=== PATIENT | female | born 2000 | race Caucasian/White ===

== ENCOUNTER 2023-09-13 20:55 | Observation (INO) | payer BC, MEDICAID, SELFPAY ==
[2023-09-13 21:02] VITALS: BP 130/83; PULSE 90; RESP 21; TEMP 36.9; O2SAT 97
[2023-09-13 21:16] VITALS: BP 118/73; PULSE 90; RESP 19; O2SAT 100
[2023-09-13] MEDS: EPINEPHrine HCL INJ 1 MG/ML AMPUL 0.3 MG IM (21:19)
--- NOTE | 2023-09-13 21:19 | PC.NURSE ---
JOSE Bennett VORB 0.3mg IM epinephrine an d125mg IVP solu medrol.
[2023-09-13] MEDS: methylPREDNISolone SOD SUCC 125 MG VIAL IV PUSH (21:20)
--- NOTE | 2023-09-13 21:26 | ED.ALLEREA ---
HPI - Allergic Reaction General Chief complaint: Allergic Reaction <ALVARADO Cintron Last Filed: 09/14/23 02:02> Stated complaint: aalergic reaction <ALVARADO Cintron Last Filed: 09/14/23 02:02> Time Seen by Provider: 09/13/23 21:07 <ALVARADO Cintron Last Filed: 09/14/23 02:02> Source: patient <ALVARADO Cintron Last Filed: 09/14/23 02:02> Mode of arrival: ambulatory <ALVARADO Cintron Last Filed: 09/14/23 02:02> Limitations: no limitations <ALVARADO Cintron Last Filed: 09/14/23 02:02> History of Present Illness HPI narrative: This is a 23-year-old female who presents to the ED with chief complaint of allergic reaction that started about 1-2 hours prior to arrival. Patient reports swelling to lips and eyes, started around the mouth. Patient has no known allergies but does note that she took Motrin prior to arrival. Patient resides at a long-term and is originally from [facility]. She is accompanied by the . They report that patient has had reactions similar to this but nothing as severe as once per month for the past few months. The feel this is occurring after she is taking Motrin for headaches. Patient denies shortness of breath or any other symptoms besides the facial swelling. Denies abdominal pain, nausea, vomiting. <ALVARADO Cintron Last Filed: 09/14/23 02:02> Related Data Home medications: Home Medications Medication Instructions Recorded Confirmed albuterol sulfate 90 mcg/actuation 2 puff inhalation Q4H PRN 09/14/23 09/14/23 aerosol inhaler (Ventolin HFA) Shortness Of Breath bupropion HCl 300 mg 24 hr tablet, 300 mg PO DAILY 09/14/23 09/14/23 extended release melatonin 5 mg tablet 5 mg PO HS 09/14/23 09/14/23 sertraline 100 mg tablet 100 mg PO DAILY 09/14/23 09/14/23 sertraline 50 mg tablet 50 mg PO DAILY 09/14/23 09/14/23 trazodone 50 mg tablet 50 mg PO HS 09/14/23 09/14/23 <Donald Colin PA-C - Last Filed: 09/14/23 02:02> Allergies/adverse reactions: Allergies Allergy/AdvReac Type Severity Reaction Status Date / Time ibuprofen Allergy Severe angioedema Verified 09/14/23 09:13 <ALVARADO Cintron Last Filed: 09/14/23 02:02> Review of Systems Review of Systems: All systems as dictated in HPI <ALVARADO Cintron Last Filed: 09/14/23 02:02> [facility] Family History Family History: Family History (Updated 09/14/23 @ 01:29 by Carlee Lu RN) Other Unknown family medical history <ALVARADO Cintron Last Filed: 09/14/23 02:02> Social History Social History: Social History Smoking status: Never smoker Alcohol intake: never Substance use: never Do You Feel Safe in your Home?: Yes Lack of Transportation: No Lack of Food: Never True Current Housing: I Have Housing Concerned About Future Housing: No Difficulty Paying Gas/Electric Bills: No Difficulty Paying for Meds: No Currently Unemployed: No Education: Decline to Answer Difficulty w/ Childcare or Family Care: No Spiritual care concerns: No <ALVARADO Cintron Last Filed: 09/14/23 02:02> Exam Narrative: GENERAL: Well-appearing, well-nourished, and in no acute distress. HEAD: Normocephalic, atraumatic. EYES: PERRLA and EOMI. ENT: Significant periorbital edema as well as edema to the lips. No tongue enlargement. No uvular enlargement. Airway is intact. Speaking in full sentences. 97% room air. Nares clear, no rhinorrhea or epistaxis. Mucous membranes moist. Oropharynx without tonsillar hypertrophy exudate or other lesions. NECK: Supple. No adenopathy or masses. CHEST: No respiratory distress. Clear to auscultation. No wheezes rales or rhonchi HEART: Regular rate and rhythm. No murmur heard. Normal peripheral pulses. ABDOMEN: Soft, nontender, nondistended, normal active bowel sounds. MSK: Normal range of motion. No edema. SKIN: Warm, dry, no rash. NEURO: Alert and oriented x3. No f
[2023-09-13] MEDS: FAMOTIDINE 20 MG/2 ML VIAL IV PUSH (21:43)
[2023-09-13] MEDS: diphenhydrAMINE HCl INJ 50 MG/ML VIAL 25 MG IV PUSH (21:43)
[2023-09-13 22:16] VITALS: BP 119/68; PULSE 83; RESP 25; O2SAT 99
[2023-09-13 22:23] LABS: Basophils Absolute Auto 0.1 K/mm3 (0.0-0.1); Basophils Percent Auto 0.4 % (0.2-1.2); Eosinophils Absolute Auto 0.2 K/mm3 (0-0.3); Eosinophils Percent Auto 1.6 % (0-4.4); Hematocrit 42.7 % (37.0-47.0); Hemoglobin 13.9 g/dL (12.0-15.0); Immature Granulocyte Absolute 0.12 K/mm3 (0.00-0.031); Immature Granulocyte Percent A 0.8 % (0-0.5); Lymphocytes Absolute Auto 3.07 K/mm3 (0.9-3.2); Lymphocytes Percent Auto 21.3 % (18.3-44.2); Mean Corpuscular HGB Conc 32.6 g/dl (32-36); Mean Corpuscular Hemoglobin 25.6 pg (26-34); Mean Corpuscular Volume 78.8 fl (80-100); Mean Platelet Volume 9.7 fl (7.4-10.4); Monocytes Absolute Auto 1.2 K/mm3 (0.1-0.6); Monocytes Percent Auto 8.3 % (2.6-8.5); Neutrophils Absolute Auto 9.7 K/mm3 (1.3-6.7); Neutrophils Percent Auto 67.6 % (45.5-73.1); Platelet Count Result 386 k/mm3 (150-375); Red Blood Count 5.42 M/mm3 (4.2-5.4); Red Cell Distribution Width 14.8 % (11.5-14.5); White Blood Count 14.4 K/mm3 (4.5-10.0)
[2023-09-13] MEDS: SODIUM CHLORIDE 0.9% IV 1,000 ML 999 ML IV CONT (22:24)
[2023-09-13 22:27] VITALS: BP 119/68; PULSE 85; RESP 22; O2SAT 99
[2023-09-13 22:32] LABS: Alanine Aminotransferase 12 U/L (6-35); Albumin Level 4.6 g/dL (3.5-5.1); Alkaline Phosphatase 69 U/L (38-126); Anion Gap 10 mmol/L (4-12); Aspartate Amino Transferase 21 U/L (14-36); Bilirubin,Total 0.5 mg/dL (0.2-1.3); Blood Urea Nitrogen 15 mg/dL (7-17); Calcium 9.2 mg/dL (8.4-10.2); Carbon Dioxide 21 mmol/L (22-30); Chloride 106 mmol/L (98-107); Estimated CRCL calculation 119 ml/min; Estimated Glomerular Filt Rate > 60; Glucose 89 mg/dL (65-110); Potassium 4.3 mmol/L (3.4-5.0); Sodium 137 mmol/L (137-145)
[2023-09-13 22:36] LABS: Partial Thromboplastin Time 28.1 Seconds (22.3-36.8); Prothrombin Time 13.8 Seconds (11.1-14.7)
--- NOTE | 2023-09-13 23:54 | PM.IMHP ---
H&P: HPI History of Present Illness Date/Time: 09/13/23 23:54 Chief Complaint: lip swelling Narrative: This is a 23-year-old female with no significant past medical history presents to the emergency room due to face swelling lip swelling apparently patient had taking Motrin at this happens every time she takes Motrin has had several episodes. patient denies any shortness of breath, difficulty swallowing, denies fevers chills rigors, sore throat. Has been her usual state of health. In emergency room patient received epinephrine, Solu-Medrol has had improvement. Patient has been placed in observation for further evaluation management and treatment. Review of Systems Review of Systems: Face swelling lip swelling Constitutional: Constitutional: Denies chills and Denies fever(s) Eyes: Eyes: Denies change in vision ENT: Denies dysphagia Cardiovascular: Cardiovascular: Denies chest pain and Denies dyspnea Respiratory: Respiratory: Denies chest congestion, Denies cough and Denies wheezing Gastrointestinal: Gastrointestinal: Denies abdominal pain, Denies nausea and Denies vomiting Genitourinary: Genitourinary: Denies dysuria Musculoskeletal: Musculoskeletal: Denies myalgias Integumentary/Breasts: Skin/Breast: Denies rash Neurologic: Denies focal weakness and Denies Sensory deficit (Neuro) Psychiatric: Psychiatric: Reports no additional psychiatric complaints and Reports as per HPI Endocrine: Endocrine: Denies cold intolerance, Denies heat intolerance, Denies polyphagia, Denies polydipsia, Denies polyuria and Denies palpitations Hematologic/Lymphatic: Hematologic/Lymphatic: Reports no additional hematologic/lymphatic complaints and Reports as per HPI Allergic/Immunologic: Allergic/Immunologic: Reports no additional allergic/immunologic complaints and Reports as per HPI Meds Home Medications and Allergies Allergies Allergy/AdvReac Type Severity Reaction Status Date / Time No Known Allergies Allergy Verified 09/13/23 21:07 Vital Signs Vital Signs - 24 hr 09/13/23 21:02 09/13/23 21:06 09/13/23 22:27 Temperature 98.4 F Pulse Rate 90 85 Respiratory Rate 21 H 22 H Blood Pressure 130/83 119/68 Pulse Oximetry 97 99 Oxygen Delivery Room Air Room Air Exam Narrative: patient is laying in a stretcher Const: General: comfortable, no acute distress, well developed, alert, awake and average body habitus Nutritional Appearance: average body habitus Orientation/consciousness: patient oriented x3 HENMT: Head: normal to inspection, normocephalic and atraumatic Ears: hearing grossly normal bilaterally Face/Nose/Sinus: edema ( around the lips right face) Face and sinus: normal facial exam Eyes: General: appearance normal, both eyes and all related structures Periorbital: periorbital findings abnormal right periorbital swelling Pupils: Equal, round and reactive pupils present EOM: EOMs intact bilaterally Neck: Neck: full ROM, no lymphadenopathy and no JVD Thyroid: thyroid normal Lymphatic: no lymphadenopathy noted Resp: Effort & Inspection: normal respiratory effort and able to speak in complete sentences Auscultation: clear to auscultation bilaterally Cardio: Jugular venous distension: no JVD Rate: regular rate Rhythm: regular rhythm Heart sounds: S1 normal heart sound present and S2 normal heart sound present GI: GI Palp: Yes Soft to palpation and Yes No hepatosplenomegaly present : General: Yes deferred Skin: Rashes: no rashes Wounds: no wounds Neuro: General: patient oriented x3 and CN's II-XI intact bilaterally Cranial nerves: Yes CN's II-XII intact bilaterally and Yes Equal, round and reactive pupils present Cognition (Neuro): normal cognition Speech: normal speech Gait exam (Neuro): Normal gait present Motor exam (neuro): 5/5 motor strength present throughout Extrem: General: normal to inspection, full ROM, no joint enlargement and no pedal edema H&P: Results Labs
[2023-09-14] VITALS (12 sets, daily range): BP systolic 104–132; BP diastolic 57–78; PULSE 71–96; RESP 14–18; TEMP 36.4–36.6; O2SAT 98–100; BMI 36.6
--- NOTE | 2023-09-14 00:30 | PC.NURSE ---
Lanette Sibley [phone]
--- NOTE | 2023-09-14 01:00 | PC.NURSE ---
This patient, Ngoc Cornejo, was admitted to IMU Room 202-01. Patient/family oriented to hospital policies and general routines including ID bracelet, bed and alarms, visiting hours, pain management, procedures, bathroom and other care routines, personal items, smoking policy, room service/diet, and visiting hours. Information on how to activate the Rapid Response Team has been discussed. Patient/Family are encouraged to report perceived risks to care and to ask questions if they do not understand what they are told or what they should do.
[2023-09-14] MEDS: DEXTROSE 5%/0.45% SOD CHL 1,000 ML 75 ML IV CONT (01:17)
[2023-09-14] MEDS: racEPINEPHrine 2.25% NEBU SOLN 0.5 ML VIAL.NEB INHALATION (01:47)
[2023-09-14] MEDS: FAMOTIDINE 20 MG TABLET PO (09:06)
--- NOTE | 2023-09-14 09:09 | PM.IMPN ---
Subjective Date/time seen: 09/14/23 09:09 Interval history: ?This is a 23-year-old female with no significant past medical history presents to the emergency room due to face swelling lip swelling apparently patient had taking Motrin at this happens every time she takes Motrin has had several episodes. patient denies any shortness of breath, difficulty swallowing, denies fevers chills rigors, sore throat.? Has been her usual state of health.? In emergency room patient received epinephrine, Solu-Medrol has had improvement.? Patient has been placed in observation for further evaluation management and treatment. 09/13: Objective Data Vital Signs Vital Signs: Vital Signs - 24 hr 09/13/23 21:02 09/13/23 21:06 09/13/23 22:27 Temperature 98.4 F Pulse Rate 90 85 Respiratory Rate 21 H 22 H Blood Pressure 130/83 119/68 Pulse Oximetry 97 99 Oxygen Delivery Room Air Room Air 09/13/23 21:16 09/13/23 22:16 09/14/23 00:00 Temperature Pulse Rate 90 83 88 Respiratory Rate 19 25 H 18 Blood Pressure 118/73 119/68 119/73 Pulse Oximetry 100 99 98 Oxygen Delivery 09/14/23 00:36 09/14/23 00:50 09/14/23 01:48 Temperature 97.9 F Pulse Rate 77 80 76 Respiratory Rate 14 16 18 Blood Pressure 132/78 104/68 Pulse Oximetry 98 98 Oxygen Delivery 09/14/23 01:55 09/14/23 01:30 09/14/23 02:00 Temperature Pulse Rate 77 88 Respiratory Rate 18 Blood Pressure Pulse Oximetry Oxygen Delivery Room Air 09/14/23 01:07 09/14/23 04:50 09/14/23 04:00 Temperature 97.8 F Pulse Rate 78 77 Respiratory Rate 16 Blood Pressure 113/61 Pulse Oximetry 100 Oxygen Delivery Room Air 09/14/23 04:00 09/14/23 06:00 09/14/23 07:56 Temperature 97.5 F L Pulse Rate 96 71 81 Respiratory Rate 16 Blood Pressure 113/57 L Pulse Oximetry 99 Oxygen Delivery Intake/Output Intake/Output: Intake & Output 09/11/23 09/12/23 09/13/23 09/14/23 23:59 23:59 23:59 23:59 Intake Total 1000 360 Output Total 200 Balance 1000 160 Meds/Results Medications: Active Medications Generic Name Dose Route Start Last Admin Trade Name Freq PRN Reason Stop Dose Admin Al Hydrox/Mg Hydrox/Simethicone 30 ml 09/14/23 01:01 Mag Hydrox/Al Hydrox/Simeth 30 Ml Udc PO Q6H PRN Indigestion Diphenhydramine HCl 50 mg 09/14/23 00:59 Diphenhydramine Hcl Inj 50 Mg/Ml Vial IV PUSH Q4H PRN Itching Famotidine 20 mg 09/14/23 09:00 09/14/23 09:06 Famotidine 20 Mg Tablet PO 20 mg Q12HR KIM Administration Dextrose/Sodium Chloride 1,000 mls @ 75 mls/hr 09/14/23 01:05 09/14/23 01:17 Dextrose 5% Sodium Chloride 0.45% IV CONT 75 mls/hr .[id number] KIM Administration Polyethylene Glycol 17 gm 09/14/23 01:01 Polyethylene Glycol 3350 17 Gm Powd.Pack PO QAM PRN Constipation Labs Labs: Laboratory Results - last 24 hr 09/13/23 22:18 WBC 14.4 H RBC 5.42 H Hgb 13.9 Hct 42.7 MCV 78.8 L MCH 25.6 L MCHC 32.6 RDW 14.8 H Plt Count 386 H MPV 9.7 Immature Gran % (Auto) 0.8 H Neut % (Auto) 67.6 Lymph % (Auto) 21.3 [place] % (Auto) 8.3 Eos % (Auto) 1.6 Baso % (Auto) 0.4 Lymph # (Auto) 3.07 [place] # (Auto) 1.2 H Eos # (Auto) 0.2 Baso # (Auto) 0.1 Abs Immat Gran (auto) 0.12 H Absolute Neuts (auto) 9.7 H Absolute Nucleated RBC 0.000 Nucleated RBC % 0.0 PT 13.8 INR 1.0 APTT 28.1 Sodium 137 Potassium 4.3 Chloride 106 Carbon Dioxide 21 L Anion Gap 10 BUN 15 Creatinine 0.70 Estim Creat Clear Calc 119 Estimated GFR > 60 Glucose 89 Calcium 9.2 Total Bilirubin 0.5 AST 21 ALT 12 Alkaline Phosphatase 69 Total Protein 8.0 Albumin 4.6
--- NOTE | 2023-09-14 10:20 | PM.DS ---
DS: Admitting Diagnosis Discharge Date 09-13 Admitting Diagnosis Facial swelling DS: Discharge Diagnosis Discharge Diagnosis (1) Angioedema: Code(s): T78.3XXA - Angioneurotic edema, initial encounter Status: Acute Assessment and Plan: placed in observation supportive care continue to monitor avoid NSAID DS: Summary Hospital Course Reason for hospitalization: angioedema Hospital Course: This is a 23-year-old female with a past medical history significant for anxiety, depression, and asthma who presents with complaints of right sided facial swelling after ingestion of ibuprofen for headache. The patient states that this has happened before after taking ibuprofen but the swelling was not as severe. The initial swelling was significant to the right side of her face, right eye, nose and lips. The patient showed me a picture on her phone 0 when she 1st presented. Today the swelling has decreased significantly. She can be discharged home today. Status at Discharge Cognitive/behavioral status at discharge: A&O x4 Time Spent with Patient Time attestation: Total time spent providing and/or coordinating discharge services:54 Exam Narrative: General: well appearing, appears stated age. HEENT: normocephalic, atraumatic. Mucous membranes moist. EOMI, PERRLA, bilateral sclera anicteric, no conjunctival injection. Neck supple without JVD, lymphadenopathy, or bruit. Right orbital edema, trace lip edema Respiratory: clear to auscultation bilaterally. No rales/rhonic/wheezes. Cardiovascular: Regular rate and rhythm, normal S1-S2 upon auscultation. No murmurs, rubs, or clicks. PMI is nondisplaced, capillary refill less than 3 second. Abdomen: Soft, round, no pulsatile masses, nondistended and nontender. No rebound, no guarding. No CVA tenderness, no hepatosplenomegaly. Bowel sounds present to all four quadrants. No high pitch or tinkling sounds, resonant to percussion. Extremities: No cyanosis, clubbing, or edema present. Pulses are palpable 2/2. Active ROM to all four extremities. Neuro: Alert and orientated x 4. PERRLA. Cranial nerves 2-12 intact without focal deficit. Skin: Warm, dry, and intact, without rash, erythema, or lesion. Lines: Incisions: Psych: pleasant, cooperative, normal speech, normal affect, no hallucinations, no dysarthria DS: Data Data Completed and Pending Labs on day of discharge: Labs from last 24 hours 09/13/23 22:18 WBC 14.4 H RBC 5.42 H Hgb 13.9 Hct 42.7 MCV 78.8 L MCH 25.6 L MCHC 32.6 RDW 14.8 H Plt Count 386 H MPV 9.7 Immature Gran % (Auto) 0.8 H Neut % (Auto) 67.6 Lymph % (Auto) 21.3 [place] % (Auto) 8.3 Eos % (Auto) 1.6 Baso % (Auto) 0.4 Lymph # (Auto) 3.07 [place] # (Auto) 1.2 H Eos # (Auto) 0.2 Baso # (Auto) 0.1 Abs Immat Gran (auto) 0.12 H Absolute Neuts (auto) 9.7 H Absolute Nucleated RBC 0.000 Nucleated RBC % 0.0 PT 13.8 INR 1.0 APTT 28.1 Sodium 137 Potassium 4.3 Chloride 106 Carbon Dioxide 21 L Anion Gap 10 BUN 15 Creatinine 0.70 Estim Creat Clear Calc 119 Estimated GFR > 60 Glucose 89 Calcium 9.2 Total Bilirubin 0.5 AST 21 ALT 12 Alkaline Phosphatase 69 Total Protein 8.0 Albumin 4.6 Discharge Plan Discharge Attending physician on discharge: Camilo Silva Discharging Clinician: Nieves Zelaya Anticipated Discharge Date/Time: 09/14/23 10:25 Patient Disposition: Other Activity: may shower Diet: regular Discharge Instructions: Please refrain from taking nonsteroidal anti-inflammatory drugs. These include ibuprofen, Aleve, and Motrin. It seems that you have an allergy to these medications. We treated you with steroids, Pepcid, and epinephrine. Further ingestion of these medications could produce a worsened response possibly even resulting in . Please follow with your primary care provider in the next 1-2 weeks. Please return to the emergency room should you tubbs
== END 2023-09-14 11:42 | disposition home or self-care (01) ==
LOC: ANHED 09-14 00:01 → ANHIMU 09-14 00:37
PROVIDERS: Admitting Provider Internal Medicine; Emergency Provider Physician Assistant; Visit Provider Nurse Practitioner Acute Care
DX: T78.3XXA Angioneurotic edema, initial encounter (principal); Z79.51 Long term (current) use of inhaled steroids
CPT/HCPCS: 36415; 80053; 85025; 85610; 85730; 94640; 96361; 96372; 96374; 96375; 99285; A9270; G0378; J0171; J1200; J2919; J7030

== ENCOUNTER 2024-01-12 04:19 | Emergency (ER) | payer BC, MEDICAID, SELFPAY ==
--- NOTE | ~2024-01-12 | CT_ITS ---
EXAMINATION: CT abdomen pelvis wo con DATE: 01/12/2024 11:27 INDICATION: Left flank pain TECHNIQUE: Computed tomography (CT) of the abdomen and pelvis was performed without intravenous contr ast. The dose-length product was 822.93 mGy-cm. Automated exposure control and iterative reconstructi on technique were employed. COMPARISON: None. FINDINGS: Heart size normal. No significant pleural or pericardial effusion. There is a 3 mm calcific ation in the left aspect of the bladder dependently which may represent a recently passed stone or UV J stone. No significant hydronephrosis. Mild left perinephric edema. The liver, spleen, pancreas, adr enal glands and right kidney are unremarkable. Gallbladder is present. No significant vascular abnorm ality. No lymphadenopathy. No acute osseous abnormality. IMPRESSION: 1. Calcification measuring 3 mm in the left aspect of the bladder dependently which may represent a r ecently passed stone or UVJ stone. Reviewed, dictated and finalized at location B. IMPRESSION: 1. Calcification measuring 3 mm in the left aspect of the bladder dependently w hich may represent a recently passed stone or UVJ stone.
[2024-01-12 04:31] VITALS: BP 111/74; PULSE 88; RESP 16; TEMP 36.6; O2SAT 100
[2024-01-12 08:08] VITALS: BP 112/65; PULSE 79; RESP 18; O2SAT 99
[2024-01-12 10:26] LABS: Basophils Percent Auto 0.3 % (0.2-1.2); Eosinophils Absolute Auto 0.1 K/mm3 (0-0.3); Eosinophils Percent Auto 0.4 % (0-4.4); Hematocrit 43.6 % (37.0-47.0); Hemoglobin 14.1 g/dL (12.0-15.0); Immature Granulocyte Absolute 0.07 K/mm3 (0.00-0.031); Immature Granulocyte Percent A 0.5 % (0-0.5); Lymphocytes Absolute Auto 1.67 K/mm3 (0.9-3.2); Lymphocytes Percent Auto 11.8 % (18.3-44.2); Mean Corpuscular HGB Conc 32.3 g/dl (32-36); Mean Corpuscular Hemoglobin 26.5 pg (26-34); Mean Platelet Volume 9.7 fl (7.4-10.4); Monocytes Percent Auto 6.8 % (2.6-8.5); Neutrophils Absolute Auto 11.4 K/mm3 (1.3-6.7); Neutrophils Percent Auto 80.2 % (45.5-73.1); Platelet Count Result 340 k/mm3 (150-375); Red Blood Count 5.32 M/mm3 (4.2-5.4); Red Cell Distribution Width 14.6 % (11.5-14.5); White Blood Count 14.2 K/mm3 (4.5-10.0)
[2024-01-12 10:38] LABS: Alanine Aminotransferase 16 U/L (6-35); Albumin Level 5.1 g/dL (3.5-5.1); Alkaline Phosphatase 85 U/L (38-126); Anion Gap 14 mmol/L (4-12); Aspartate Amino Transferase 28 U/L (14-36); Bilirubin,Total 0.9 mg/dL (0.2-1.3); Blood Urea Nitrogen 15 mg/dL (7-17); Calcium 9.4 mg/dL (8.4-10.2); Carbon Dioxide 22 mmol/L (22-30); Chloride 103 mmol/L (98-107); Estimated CRCL calculation 108 ml/min; Estimated Glomerular Filt Rate > 60; Glucose 101 mg/dL (65-110); Potassium 4.2 mmol/L (3.4-5.0); Prothrombin Time 14.1 Seconds (11.1-14.7); Sodium 139 mmol/L (137-145)
[2024-01-12 10:39] LABS: Partial Thromboplastin Time 26.8 Seconds (22.3-36.8)
[2024-01-12 10:41] VITALS: BP 114/71; PULSE 60; RESP 18; O2SAT 100
[2024-01-12 10:51] LABS: Add Urine Microscopic? YES; Appearance Urine Clear (Clear); Bacteria Urine None Seen /hpf; Bilirubin Urine Negative (Negative); Blood Urine 2+ (Negative); Color Urine Yellow (Yellow); Glucose Urine UA Negative (Negative); Ketones Urine 3+ mg/dL (Negative); Leukocyte Esterase Ur 1+ LEU/UL (Negative); Nitrate Urine Negative (Negative); Non Pathogenic Casts 0-2; Protein Urine Trace mg/dL (Negative); RBC Urine 21-50 /hpf (0-2); Specific Grav Ur 1.018 (1.001-1.035); Squamous Epithelial Cell Urine Occasional /hpf (Few)
--- NOTE | 2024-01-12 11:02 | ED.GENADULT ---
HPI - General Adult General Chief complaint: Back Pain/Injury Stated complaint: left flank pain Time Seen by Provider: 01/12/24 09:58 History of Present Illness HPI narrative: 23-year-old female present to the emergency department for evaluation for left flank pain that started approximately 11:30 last night. Patient did take Tylenol for the flank pain but states it did not help significantly. Patient states the pain did begin to improve at about 7:00 a.m. in the morning. Patient denies any radiation of the flank pain. Patient denies any pain with urination. Upon arrival emergency department patient states her pain has significantly improved and does report that she does still have some like pressure but patient declined any additional medications for pain control. Related Data Home Medications Medication Instructions Recorded Confirmed albuterol sulfate 90 mcg/actuation 2 puff inhalation Q4H PRN 09/14/23 09/14/23 aerosol inhaler (Ventolin HFA) Shortness Of Breath bupropion HCl 300 mg 24 hr tablet, 300 mg PO DAILY 09/14/23 09/14/23 extended release melatonin 5 mg tablet 5 mg PO HS 09/14/23 09/14/23 sertraline 100 mg tablet 100 mg PO DAILY 09/14/23 09/14/23 sertraline 50 mg tablet 50 mg PO DAILY 09/14/23 09/14/23 trazodone 50 mg tablet 50 mg PO HS 09/14/23 09/14/23 Allergies Allergy/AdvReac Type Severity Reaction Status Date / Time ibuprofen Allergy Severe angioedema Verified 09/14/23 09:13 Review of Systems Review of Systems: All systems reviewed & are unremarkable except as noted in HPI and below [facility] Family History Family History (Updated 09/14/23 @ 01:29 by Carlee Lu RN) Other Unknown family medical history Social History Social History Smoking status: Never smoker Alcohol intake: never Substance use: never Do You Feel Safe in your Home?: Yes Lack of Transportation: No Lack of Food: Never True Current Housing: I Have Housing Concerned About Future Housing: No Difficulty Paying Gas/Electric Bills: No Difficulty Paying for Meds: No Currently Unemployed: No Education: Decline to Answer Difficulty w/ Childcare or Family Care: No Spiritual care concerns: No Exam Narrative: APPEARANCE: Well appearing, no pain, no distress, well-nourished. HEAD: normocephalic, atraumatic. EYES: PERRLA/EOMI, conjunctivae clear. NOSE: Normal no drainage EARS:TMS clear with good light reflex. THROAT: Pharynx clear, no exudate. NECK: Supple. No adenopathy, no masses. RESPIRATORY: Airway patent, respirations nonlabored. Clear to auscultation bilaterally, no rales, rhonchi, wheezing. CARDIOVASCULAR: Regular rate and rhythm without murmurs rubs or gallops. ABDOMINAL: Soft, nontender, nondistended, normal bowel sounds MUSCULOSKELETAL: No left flank tenderness to palpation NEURO: Alert. Cranial nerves II through XII intact. Good gait. Good coordination SKIN: No overlying rash or erythema Course Vital Signs Vital signs: Vital Signs Temperature 97.8 F 01/12/24 04:31 Pulse Rate 88 01/12/24 04:31 Respiratory Rate 16 01/12/24 04:31 Blood Pressure 111/74 01/12/24 04:31 Pulse Oximetry 100 01/12/24 04:31 Oxygen Delivery Room Air 01/12/24 04:31 Temperature 97.8 F 01/12/24 04:31 Pulse Rate 74 01/12/24 12:16 Respiratory Rate 19 01/12/24 12:16 Blood Pressure 114/74 01/12/24 12:16 Pulse Oximetry 100 01/12/24 12:16 Oxygen Delivery Room Air 01/12/24 04:31 Medical Decision Making [facility] Narrative Medical decision making narrative: 23-year-old female present to the emergency department for evaluation for left flank pain. Patient has no significant tenderness to palpation. Patient is afebrile but does have a leukocytosis of 14.2 and hemoglobin of 14.1. INR is 1.0. No significant abnormalities on the patient's CMP UA was positive for blood leukocyte esterase positive and did have red white blood cells with no bacteria. Urine culture i
[2024-01-12 12:16] VITALS: BP 114/74; PULSE 74; RESP 19; O2SAT 100
[2024-01-13 14:28] LABS: BEDSIDEPREGUCG Negative (Negative)
== END 2024-01-12 12:24 | disposition home or self-care (01) ==
PROVIDERS: Emergency Provider Emergency Medicine
DX: N20.1 Calculus of ureter (principal); R10.9 Unspecified abdominal pain; R31.9 Hematuria, unspecified; R82.998 Other abnormal findings in urine
CPT/HCPCS: 36415; 74176; 80053; 81001; 81025; 85025; 85610; 85730; 87086; 87088; 96365; 99284; J0696